=== PATIENT | female | born 1980 | race Caucasian/White ===

== ENCOUNTER → 2016-11-29 | Outpatient (CLI) | payer BC | END | disposition disaster alternative care site (69) | LOC: GLAB 08:00 | DX: Z36 Encounter for antenatal screening of mother (principal) ==

== ENCOUNTER → 2017-02-23 | Outpatient (CLI) | payer BC | END | disposition disaster alternative care site (69) | LOC: GLAB 08:00 | DX: Z36 Encounter for antenatal screening of mother (principal) ==